=== PATIENT | male | born 1995 | race African-American/Black ===

== ENCOUNTER 2018-03-02 20:12 | Emergency (ER) | payer SELFPAY ==
--- NOTE | 2018-03-02 20:53 | ER Document Report ---
ED General - General Chief Complaint: Pain With Urination Stated Complaint: PAIN WITH URINATION Time Seen by Provider: 03/02/18 20:36 TRAVEL OUTSIDE OF THE [place] IN LAST 30 DAYS: No - HPI Notes: 22-year-old male otherwise healthy presents with several days of gradual onset dysuria. Denies any penile drainage or discharge. Denies any history of sexually transmitted infection, sexually active with one partner. No fever, chills or sweats. No abdominal pain. No back pain. No other modifying factors , no other associated symptoms, no other provocative or palliative factors. Nonradiating. - Related Data Allergies/Adverse Reactions: No Known Allergies Allergy (Verified 03/02/18 20:13) Past Medical History - Social History Smoking Status: Never Smoker Family History: Reviewed & Not Pertinent Patient has suicidal ideation: No Patient has homicidal ideation: No - Medical History Medical History: Negative Renal/ Medical History: Denies: Hx Peritoneal Dialysis - Immunizations Hx Diphtheria, Pertussis, Tetanus Vaccination: Yes Review of Systems - Review of Systems Notes: No abdominal pain, chest pain, back pain or fever Physical Exam - Vital signs Vitals: Temp Pulse Resp BP Pulse Ox 98.8 F 80 17 149/77 H 97 03/02/18 20:18 03/02/18 20:18 03/02/18 20:18 03/02/18 20:18 03/02/18 20:18 - Notes Notes: General: Well developed . HEENT: Normocephalic, atraumatic. Pupils equal round reactive to light. No JVD. Chest: No trauma. Respiratory: Good air exchange, normal excursion. Cardiac: Regular rhythm. No murmurs or gallops. Abdomen: Soft, benign. Nondistended. Nontender. Back: No asymmetry or gross abnormality. Motor: Grossly normal power and tone. Neurologic: Alert, nonfocal. Cranial nerves II-12 are intact. Sensation intact. Vascular: Well perfused. Normal peripheral pulses. Skin: No petechiae or purpura. Course - Re-evaluation Re-evalutation: 03/02/18 20:53 This is a very well-appearing male presents with dysuria. Would be unusual for a male patient had a UTI but will check urinalysis. I have encouraged patient to consider empiric treatment for STI. 03/02/18 21:35 Labs reviewed, urinalysis shows pyuria, small amount hematuria. I have a strong suspicion for likely STI and urethritis, I discussed this with the patient with regard to testing versus empiric treatment and he is elected for the latter. Urine cultures sent, by on the side of caution and cover with Keflex for possible UTI. - Vital Signs Vital signs: Temp Pulse Resp BP Pulse Ox 98.8 F 80 17 149/77 H 97 03/02/18 20:18 03/02/18 20:18 03/02/18 20:18 03/02/18 20:18 03/02/18 20:18 - Laboratory Laboratory results interpreted by me: 03/02/18 21:02 Urine Protein 100 H Urine Blood SMALL H Urine Urobilinogen 4.0 H Ur Leukocyte Esterase MODERATE H Discharge - Discharge Clinical Impression: Urethritis Condition: Good Disposition: HOME, SELF-CARE Instructions: Urethritis ([facility]), Urinary Tract Infection ([facility]) Prescriptions: Cephalexin Monohydrate [Keflex 500 mg Capsule] 500 mg PO QID #20 capsule
[2018-03-02 21:27] LABS: APPEARANCE,URINE SLIGHTLY-CLOUDY; BILIRUBIN,URINE NEGATIVE (NEGATIVE); COLOR,URINE YELLOW; GLUCOSE, URINE NEGATIVE (NEGATIVE); KETONES,URINE NEGATIVE (NEGATIVE); LEUKOCYTE ESTERASE,URINE MODERATE (NEGATIVE); NITRITE,URINE NEGATIVE (NEGATIVE); PROTEIN,URINE 100 mg/dL (NEGATIVE); URINE SPECIFIC GRAVITY 1.032
[2018-03-02] MEDS ORDERED: LIDOCAINE 1% INJ-PF (10 MG/ML) 30 ML SDV INJ ONE (21:35)
[2018-03-02] MEDS ORDERED: CEFTRIAXONE INJ 250 MG VIAL IM ONE (21:35)
[2018-03-02] MEDS ORDERED: AZITHROMYCIN 1 GM SUSP PACKET PO ONE (21:35)
[2018-03-02 22:14] VITALS: BP 124/64
== END 2018-03-02 22:14 | disposition home or self-care (01) ==
LOC: ER 20:12
DX: N34.2 Other urethritis (principal); R30.0 Dysuria; R31.9 Hematuria, unspecified
CPT/HCPCS: 99283; 96372; 87086; 81001; J3490; Q0144; J0696

== ENCOUNTER 2019-11-05 18:12 | Emergency (ER) | payer SELFPAY ==
--- NOTE | 2019-11-05 18:47 | ER Document Report ---
ED Medical Screen (RME) - General Chief Complaint: Penile Bleeding Stated Complaint: PENILE DISCHARGE Time Seen by Provider: 11/05/19 18:41 Primary Care Provider: [facility] [Provider Group] - Follow up as needed [facility] [Provider Group] - Follow up as needed [facility] [Provider Group] - Follow up as needed [facility] [Provider Group] - Follow up as needed Mode of Arrival: Ambulatory Information source: Patient Notes: 24-year-old male presented to ED for complaint of blood in his urine when he urinated today. He states he is not having any other symptoms. He states that about a year ago when he had similar symptoms he came into the emergency room to get checked out and was diagnosed with chlamydia. He states he would like to be tested for this today. Patient is alert oriented respirations regular nonlabored speaking in full sentences. TRAVEL OUTSIDE OF THE [place] IN LAST 30 DAYS: No - HPI Onset: This morning Onset/Duration: Sudden Quality of pain: No pain Severity: None Pain Level: Denies Associated Symptoms: Other - Blood in urine Exacerbated by: Denies Relieved by: Denies Similar symptoms previously: No Recently seen / treated by doctor: No - Related Data Smoking: Non-smoker Frequency of alcohol use: None Drug Abuse: None Allergies/Adverse Reactions: No Known Allergies Allergy (Verified 03/02/18 20:13) Past Medical History - General Information source: Patient - Social History Cigarette use (# per day): No Frequency of alcohol use: None Drug Abuse: None Occupation: Construction Lives with: Family Family history: Reviewed & Not Pertinent - Past Medical History Cardiac Medical History: Reports: None Pulmonary Medical History: Reports: None EENT Medical History: Reports: None Neurological Medical History: Reports: None Endocrine Medical History: Reports: None Renal/ Medical History: Reports: Other - Chlamydia Malignancy Medical History: Reports None GI Medical History: Reports: None Musculoskeltal Medical History: Reports None Skin Medical History: Reports None Psychiatric Medical History: Reports: None Traumatic Medical History: Reports: None Infectious Medical History: Reports: None Surgical Hx: Negative Past Surgical History: Reports: None - Immunizations Immunizations up to date: Yes Hx Diphtheria, Pertussis, Tetanus Vaccination: Yes Review of Systems - Review of Systems Constitutional: No symptoms reported EENT: No symptoms reported Cardiovascular: No symptoms reported Respiratory: No symptoms reported Gastrointestinal: No symptoms reported Genitourinary: Hematuria Male Genitourinary: Penile discharge Musculoskeletal: No symptoms reported Skin: No symptoms reported Hematologic/Lymphatic: No symptoms reported Neurological/Psychological: No symptoms reported -: Yes All other systems reviewed and negative Physical Exam - Vital signs Vitals: Temp Resp BP 98.4 F 18 177/98 H 11/05/19 18:16 11/05/19 18:16 11/05/19 18:16 Interpretation: Normal - General General appearance: Appears well, Alert - HEENT Head: Normocephalic, Atraumatic Eyes: Normal Pupils: PERRL - Respiratory Respiratory status: No respiratory distress Chest status: Nontender Breath sounds: Normal Chest palpation: Normal - Cardiovascular Rhythm: Regular Heart sounds: Normal auscultation Murmur: No - Abdominal Inspection: Normal Distension: No distension Bowel sounds: Normal Tenderness: Nontender Organomegaly: No organomegaly - Genitourinary Inspection: Penile discharge - Back Back: Normal, Nontender - Extremities General upper extremity: Normal inspection, Nontender, Normal color, Normal ROM, Normal temperature General lower extremity: Normal inspection, Nontender, Normal color, Normal ROM, Normal temperature, Normal weight bearing. No: Gurvinder's sign - Neurological Neuro grossly intact: Yes Cognition: Normal Orientation: AAOx4 Norris Coma Scale Eye Opening: Spontaneous Dari Coma Scale Verbal: Oriented Dari Coma Scale Motor: Obeys Commands Norris Coma Scale Total: 15 Speech: Normal Motor strength normal: LUE, RUE, LLE, RLE Sensory: Normal - Psychological Associated symptoms: Normal affect, Normal mood - Skin Skin Temperature: Warm Skin Moisture: Dry Skin Color: Normal Course - Re-evaluation Re-evalutation: 11/05/19 21:40 Patient has been treated with Rocephin, azithromycin and doxycycline and discharged home with a prescription for doxycycline. He is positive for gonorrhea and chlamydia. 11/05/19 21:42 Patient has been informed that he is positive for gonorrhea and chlamydia. He stated that he would be sure that his partner was treated. He has been informed that he needs to have no unprotected sex until he and his partner have both been treated for 10 days. Patient verbalized understanding and agreement with treatment plan. - Vital Signs Vital signs: Temp Pulse Resp BP Pulse Ox 99.1 F 70 18 152/95 H 100 11/05/19 19:59 11/05/19 19:59 11/05/19 19:59 11/05/19 19:59 11/05/19 19:59 - Laboratory Laboratory results interpreted by me: 11/05/19 11/05/19 19:03 19:03 Urine Protein 30 H Urine Blood LARGE H Leukocyte Esterase Rfl LARGE H Chlamydia DNA (PCR) DETECTED H N.gonorrhoeae DNA (PCR) DETECTED H Doctor's Discharge - Discharge Clinical Impression: Urethritis, Gonorrhea, Chlamydia UTI (urinary tract infection) Qualifiers: Urinary tract infection type: site unspecified Hematuria presence: with hematuria Qualified Code(s): N39.0 - Urinary tract infection, site not specified Condition: Stable Disposition: HOME, SELF-CARE Additional Instructions: URINARY TRACT INFECTION: Please call [phone] tomorrow for the results of your gonorrhea and chlamydia. Your evaluation indicates that you have a urinary tract infection. This is due to germs growing in the bladder. This is a common problem. This infection usually responds quickly to antibiotics. Your antibiotic should be taken exactly as prescribed. Drink plenty of fluids -- three to four quarts a day. Occasionally, a bladder anesthetic will be prescribed to help stop the feeling of urgency until the antibiotic has a chance to clear the infection. This may cause your urine to be dark orange. Certain urine infections require a culture. If the doctor obtained a culture, the results will be back in two days. You should call to see if a change in treatment is needed. A repeat urinalysis after you finish treatment is often recommended. The physician will let you know if further testing is required. Call the doctor if you develop fever, chills, flank pain, inability to urinate, or blood in the urine. Urethritis You have urethritis, an infection of the urethra. The usual symptoms are pain on urination and discharge. The infection is often caused by gonorrhea or chlamydia. Treatment is antibiotics. In addition, any sexual contacts should be evaluated by a physician as soon as possible. As this infection can be transmitted sexually, refrain from sexual activity until the infection is confirmed as healed by your physician. If gonorrhea or chlamydia is found on culture, the health department must be notified. Call the doctor at once if you develop difficulty passing your urine, high fever, rash, joint swelling, or other new symptoms. ANTIBIOTIC THERAPY: You have been given an antibiotic prescription. It's important that you take all the medication, unless instructed otherwise by your physician. Failure to complete the entire course can result in relapse of your condition. Common side effects of antibiotics include nausea, intestinal cramping, or diarrhea. Women may develop vaginal yeast infections, and babies can get yeast (thrush) in the mouth following the use of antibiotics. Contact your physician if you develop significant side effects from this medication. Allergy to this antibiotic can result in hives, wheezing, faintness, or itching. If symptoms of allergy occur, stop the medication and call the doctor. Rocephin You have been given an injection of an antibiotic called Rocephin (ceftriaxone). Sometimes the injection must be combined with antibiotic pills. For some infections, such as an uncomplicated ear infection, Rocephin provides all the antibiotic that's needed. The antibiotic will be in your body for about two days. For serious infections, we usually repeat doses of Rocephin daily. Side effects are very unusual following a shot. Women may develop vaginal yeast infections, and babies can get yeast (thrush) in the mouth following the use of antibiotics. Contact your physician if you have symptoms with this medication. Allergy to this antibiotic can result in hives, wheezing, faintness, or itching. If symptoms of allergy occur, call the doctor at once. Azithromycin Azithromycin (Zithromax) is a broad spectrum antibiotic in the same class as erythromycin. It can treat a variety of bacterial infections, but is most frequently used for respiratory infections. Azithromycin is extremely long-lasting. It accumulates in body tissues and continues to kill bacteria for many days. In order to improve absorption, Azithromycin should be taken at least one hour before or two hours after a meal. It does not have the same strong tendency to upset the stomach as erythromycin and is usually very well tolerated. Patients who have had a rash or other true allergic reactions to erythromycin should not take this medication. Call if you develop gastrointestinal distress, severe diarrhea, rash, hives, itching, or shortness of breath. Doxycycline Doxycycline (Vibramycin, Doryx) is an antibiotic of the tetracycline family. This type of drug is useful for infections of the respiratory tract and genital tract, and is sometimes used for intestinal infections. Unlike most tetracyclines, doxycycline can be taken with food. It is longer acting, and (usually) less prone to side effects than regular tetracycline. Tetracycline antibiotics can stain immature teeth and SHOULD NOT BE TAKEN BY CHILDREN, NURSING MOTHERS, OR WOMEN. Tetracyclines can make you more prone to sunburn. Abdominal cramping, naus ea, and diarrhea are occasional side effects. Women may experience vaginal yeast infections. Call the doctor at once if you develop hives, itching, shortness of breath, or lightheadedness. FOLLOW-UP CARE: If you have been referred to a physician for follow-up care, call the physicians office for an appointment as you were instructed or within the next two days. If you experience worsening or a significant change in your symptoms, notify the physician immediately or return to the Emergency Department at any time for re-evaluation. Prescriptions: Doxycycline Hyclate 100 mg PO BID #20 capsule Forms: Elevated Blood Pressure, Return to Work Referrals: [facility] [Provider Group] - Follow up as needed [facility] [Provider Group] - Follow up as needed [facility] [Provider Group] - Follow up as needed [facility] [Provider Group] - Follow up as needed
[2019-11-05] MEDS ORDERED: AZITHROMYCIN 250 MG TABLET PO ONE (18:49)
[2019-11-05] MEDS ORDERED: LIDOCAINE 1% INJ-PF (10 MG/ML) 30 ML SDV INJ ONE (18:49)
[2019-11-05] MEDS ORDERED: CEFTRIAXONE INJ 250 MG VIAL IM ONE (18:49)
[2019-11-05 19:27] LABS: APPEARANCE,URINE SLIGHTLY-CLOUDY; BILIRUBIN,URINE NEGATIVE (NEGATIVE); COLOR,URINE YELLOW; GLUCOSE, URINE NEGATIVE (NEGATIVE); KETONES,URINE NEGATIVE (NEGATIVE); PROTEIN,URINE 30 mg/dL (NEGATIVE); URINE SPECIFIC GRAVITY 1.025; UROBILINOGEN,URINE NEGATIVE mg/dL (<2.0)
[2019-11-05] MEDS ORDERED: DOXYCYCLINE HYCLATE 100 MG TABLET PO ONE (19:31)
[2019-11-05 19:48] VITALS: BP 152/95
[2019-11-05 20:45] LABS: CHLAM PCR DETECTED (NOT DETECT)
== END 2019-11-05 19:55 | disposition home or self-care (01) ==
LOC: ER 18:12
DX: N39.0 Urinary tract infection, site not specified (principal); A56.01 Chlamydial cystitis and urethritis; A54.9 Gonococcal infection, unspecified; R31.9 Hematuria, unspecified
CPT/HCPCS: 99283; 96372; 81001; 87491; 87591; J3490; J0696

== ENCOUNTER 2020-03-17 07:31 | Emergency (ER) | payer SELFPAY ==
--- NOTE | 2020-03-17 08:35 | ER Document Report ---
ED Skin Rash/Insect Bite/Abscs - General Chief Complaint: Skin Problem Stated Complaint: POSSIBLE RASH Time Seen by Provider: 03/17/20 08:25 Notes: CHIEF COMPLAINT: Rash for 1 to 2 weeks HPI: 24-year-old male presenting for evaluation of a rash that began 1 to 2 weeks ago. [place] if he came in contact with anything. The rash is not itchy. States it started as 1 patch on the right forearm and now has spread across the forearms, bilateral palms of the hands, lower extremities and feet. Denies rash on the trunk. Denies fever. Denies penile discharge or dysuria. States he is not concerned necessarily about STDs. ROS: See HPI - all other systems were reviewed and are otherwise negative Constitutional: no fever Eyes: no drainage, no blurred vision ENT: no runny nose, no sore throat Cardiovascular: no chest pain Resp: no SOB, no cough GI: no vomiting, no diarrhea, no abdominal pain : no dysuria Integumentary: + rash Allergy: no hives Musculoskeletal: no extremity pain or swelling Neurological: no numbness/tingling, no weakness MEDICATIONS: I agree with the patient medications as charted by the RN. ALLERGIES: I agree with the allergies as charted by the RN. PAST MEDICAL HISTORY/PAST SURGICAL HISTORY: Reviewed and agree as charted by RN. SOCIAL HISTORY: Reviewed and agree as charted by RN. FAMILY HISTORY: No significant familial comorbid conditions directly related to patient complaint EXAM: Reviewed vital signs as charted by RN. CONSTITUTIONAL: Alert and oriented and responds appropriately to questions. Well-appearing; well-nourished HEAD: Normocephalic; atraumatic EYES: PERRL; Conjunctivae clear, sclerae non-icteric ENT: normal nose; no rhinorrhea; moist mucous membranes; pharynx without lesions noted, no uvula edema or deviation, no tonsillar hypertrophy, phonation normal NECK: Supple without meningismus; non-tender; no cervical lymphadenopathy, no masses CARD: RRR; no murmurs, no clicks, no rubs, no gallops; symmetric distal pulses RESP: Normal chest excursion without splinting or tachypnea; breath sounds clear and equal bilaterally; no wheezes, no rhonchi, no rales, pulse oximetry 100% on room air not hypoxic ABD/GI: Normal bowel sounds; non-distended; soft, non-tender, no rebound, no guarding; no palpable organomegaly or masses. BACK: The back appears normal and is non-tender to palpation, there is no CVA tenderness EXT: Normal ROM in all joints; non-tender to palpation; no cyanosis, no effusions, no edema SKIN: Normal color for age and race; warm; dry; good turgor; there are multiple areas across the bilateral upper and lower extremities including the palms of the hands of a rash with a darker pigmentation with some linear scaling and a defined border. No erythema. No petechia purpura or vesicles. No rash on the trunk NEURO: Moves all extremities equally; Motor and sensory function intact PSYCH: The patient's mood and manner are appropriate. Grooming and personal hygiene are appropriate. 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 Will place patient on a course of steroids. Does not appear fungal at this time. I did discuss possible STDs, he is willing to have lab work done including an RPR TRAVEL OUTSIDE OF THE [place] IN LAST 30 DAYS: No - Related Data Allergies/Adverse Reactions: No Known Allergies Allergy (Verified 03/02/18 20:13) Past Medical History - Social History Smoking Status: Unknown if Ever Smoked Frequency of alcohol use: Social Family History: Reviewed & Not Pertinent Patient has suicidal ideation: No Patient has homicidal ideation: No - Immunizations Immunizations up to date: Yes Hx Diphtheria, Pertussis, Tetanus Vaccination: Yes Physical Exam - Vital signs Vitals: Temp Pulse Resp BP Pulse Ox 97.8 F 58 L 14 167/107 H 100 03/17/20 07:35 03/17/20 07:35 03/17/20 07:35 03/17/20 07:35 03/17/20 07:35 Course - Vital Signs Vital signs: Temp Pulse Resp BP Pulse Ox 97.8 F 58 L 14 167/107 H 100 03/17/20 07:35 03/17/20 07:35 03/17/20 07:35 03/17/20 07:35 03/17/20 07:35 Discharge - Discharge Clinical Impression: Rash and nonspecific skin eruption Condition: Stable Disposition: HOME, SELF-CARE Instructions: Pityriasis Rosea ([facility]) Additional Instructions: Take the steroids as prescribed. Follow-up with a primary care provider for further evaluation if the rash continues. It is possible that you may need a skin scraping or biopsy to further define the cause of the rash. If any of your lab work is abnormal you will receive a call from the hospital. Prescriptions: Prednisone [Deltasone 20 mg Tablet] 2 tab PO DAILY 5 Days #10 tablet Referrals: JANUARY AGUIRRE DO [NO LOCAL MD] - Follow up as needed
[2020-03-17 08:57] VITALS: BP 162/98
[2020-03-17 09:02] LABS: ABSOLUTE EOSINOPHILS # (AUTO) 0.1 10^3/uL (0.0-0.6); ABSOLUTE LYMPHOCYTES (AUTO) 2.5 10^3/uL (0.5-4.7); ABSOLUTE MONOCYTES (AUTO) 0.4 10^3/uL (0.1-1.4); ABSOLUTE NEUT (AUTO) 2.4 10^3/uL (1.7-8.2); BASOPHILS % (AUTO) 0.4 % (0-2); EOSINOPHILS % (AUTO) 1.5 % (0-6); HEMATOCRIT 40.5 % (37.9-51.0); HEMOGLOBIN 14.1 g/dL (13.5-17.0); LYMPHOCYTES % (AUTO) 46.5 % (13-45); MEAN CORPUSCULAR HEMOGLOBIN 29.6 pg (27.0-33.4); MEAN CORPUSCULAR HGB CONC 34.8 g/dL (32.0-36.0); MEAN CORPUSCULAR VOLUME 85 fl (80-97); MONOCYTES % (AUTO) 6.6 % (3-13); PLATELET COUNT 232 10^3/uL (150-450); RED BLOOD COUNT 4.76 10^6/uL (4.35-5.55); RED CELL DISTRIBUTION WIDTH 13.1 % (11.5-14.0); TOTAL CELLS COUNTED % (AUTO) 100 %; WHITE BLOOD COUNT 5.4 10^3/uL (4.0-10.5)
[2020-03-17 09:16] LABS: ALBUMIN 4.4 g/dL (3.5-5.0); ALKALINE PHOSPHATASE 96 U/L (38-126); ANION GAP 5 (5-19); ASPARTATE AMINO TRANSFERASE 22 U/L (17-59); BILIRUBIN,TOTAL 0.4 mg/dL (0.2-1.3); BLOOD UREA NITROGEN 17 mg/dL (7-20); CALCIUM 9.5 mg/dL (8.4-10.2); CARBON DIOXIDE 28 mmol/L (22-30); CHLORIDE 106 mmol/L (98-107); GLUCOSE 100 mg/dL (75-110); POTASSIUM 3.9 mmol/L (3.6-5.0); TOTAL PROTEIN 7.6 g/dL (6.3-8.2)
== END 2020-03-17 08:56 | disposition home or self-care (01) ==
LOC: ER 07:31
DX: R21 Rash and other nonspecific skin eruption (principal)
CPT/HCPCS: 36415; 80053; 85025; 86592; 99283

== ENCOUNTER 2020-09-11 12:12 | Emergency (ER) | payer OTHER ==
[2020-09-11 12:37] VITALS: BP 167/91
[2020-09-11] MEDS ORDERED: LIDOCAINE 1% INJ-PF (10 MG/ML) 30 ML SDV NEB ONE (12:42)
[2020-09-11] MEDS ORDERED: CEFTRIAXONE INJ 250 MG VIAL IM ONE (12:42)
[2020-09-11] MEDS ORDERED: AZITHROMYCIN 250 MG TABLET PO ONE (12:42)
--- NOTE | 2020-09-11 12:43 | ER Document Report ---
HPI - HPI Patient complains to provider of: dysuria Time Seen by Provider: 09/11/20 12:37 Pain Level: Denies Context: 24-year-old male past medical history significant for chlamydia 2 months ago presents to the emergency room complaining of burning with urination for the past 2 days. He denies any penile discharge. States both him and his girlfriend were treated for chlamydia 2 months ago. Denies any other change in sexual partners. States his girlfriend is asymptomatic. Associated Symptoms: None Exacerbated by: Denies Relieved by: Denies Similar symptoms previously: Yes - Chlamydia 2 months ago Recently seen / treated by doctor: No - ROS Systems Reviewed and Negative: Yes All other systems reviewed and negative - CONSTITUTIONAL Constitutional: DENIES: Fever - URINARY Urinary: REPORTS: Dysuria - discomfort with urination - REPRODUCTIVE Reproductive: DENIES: : - MUSCULOSKELETAL Musculoskeletal: DENIES: Back Pain - DERM Skin Color: Normal Skin Problems: None Past Medical History - General Information source: Patient - Social History Smoking Status: Never Smoker Chew tobacco use (# tins/day): No Frequency of alcohol use: None Drug Abuse: None Family History: Reviewed & Not Pertinent Patient has homicidal ideation: No - Immunizations Immunizations up to date: Yes Hx Diphtheria, Pertussis, Tetanus Vaccination: Yes Vertical Provider Document - CONSTITUTIONAL Agree With Documented VS: Yes Exam Limitations: No Limitations General Appearance: No Apparent Distress Notes: GENERAL: Mild acute distress, non-toxic appearance. HEAD: Normal with no signs of head trauma. EYES: PERRLA, EOMI, conjunctiva normal, no discharge. EARS: Hearing grossly intact. NOSE: Normal. THROAT: Oropharynx is normal. NECK: Normal range of motion, no tenderness, supple, no lymphadenopathy, No adenopathy, no JVD. CHEST: Clear breath sounds bilaterally. No wheezes, rales, or rhonchi. CARDIAC: Regular rate and rhythm. S1 and S2, without murmurs, gallops, or rubs. VASCULAR: No Edema. Peripheral pulses normal and equal in all extremities. ABDOMEN: Normal and soft with no tenderness, no masses or pulsatile masses. No organomegaly. Positive bowel sounds x4. No CVA tenderness noted bilaterally. GASTROINTESTINAL: Bowel sounds normal LYMPATHTIC: No lymphadenopathy noted. MUSCULOSKELETAL: Good range of motion of all major joints. Extremities without clubbing, cyanosis or edema. NEUROLOGICAL: Alert and oriented x 3. No focal sensory or strength deficits. Speech normal. Follows commands appropriately. PSYCHIATRIC: Normal Affect, judgement and mood. SKIN: Normal appearance with no rashes or lesions. - INFECTION CONTROL TRAVEL OUTSIDE OF THE [place] IN LAST 30 DAYS: No - REPRODUCTIVE Male Genitalia: Normal Inspection Notes: Circumcised, no rashes, no palpable hernias. No penile discharge noted. Course - Re-evaluation Re-evalutation: 09/11/20 13:39 Patient was counseled on a negative urinalysis. He is aware that his gonorrhea and Chlamydia tests are still pending. He will be notified if they are positi ve. Patient requested to be treated prophylactically for both. He was counseled on no sexual activity for 1 week unless he gets a negative gonorrhea chlamydia test. Outpatient follow-up with a primary care physician if not improving in 2 to 3 days on-call physician was provided. Can also follow-up with health department. Patient was given strict return to the emergency room guidelines. Return for any new or worsening symptoms. All questions were answered. Patient verbalized understanding and agrees with plan of care. 09/11/20 13:40 - Vital Signs Vital signs: Temp Pulse Resp BP Pulse Ox 99.2 F 71 12 167/91 H 98 09/11/20 12:37 09/11/20 12:35 09/11/20 12:35 09/11/20 12:35 09/11/20 12:35 Discharge - Discharge Clinical Impression: Dysuria Condition: Stable Disposition: HOME, SELF-CARE Instructions: Urethritis ([facility]) Additional Instructions: You have been treated presumptively for both gonorrhea and chlamydia. No sexual activity for 1 week Unless you receive negative gonorrhea and chlamydia test results. Outpatient follow-up with her primary care physician and/or the health department if not improving in 2 to 3 days. Return to the emergency room for any new or worsening symptoms. Referrals: MARA MCGRAW [NO LOCAL MD] - Follow up as needed
[2020-09-11 13:18] LABS: APPEARANCE,URINE CLEAR; BILIRUBIN,URINE NEGATIVE (NEGATIVE); COLOR,URINE YELLOW; GLUCOSE, URINE NEGATIVE (NEGATIVE); KETONES,URINE NEGATIVE (NEGATIVE); LEUKOCYTE ESTERASE,URINE LARGE (NEGATIVE); NITRITE,URINE NEGATIVE (NEGATIVE); PROTEIN,URINE NEGATIVE (NEGATIVE); URINE SPECIFIC GRAVITY 1.023; UROBILINOGEN,URINE NEGATIVE mg/dL (<2.0)
[2020-09-11 14:50] LABS: CHLAM PCR NOT DETECTED (NOT DETECT)
== END 2020-09-11 14:04 | disposition home or self-care (01) ==
LOC: ER 12:12
DX: R30.0 Dysuria (principal)
CPT/HCPCS: 99284; 96372; 81001; 87491; 87591; J3490; J0696